=== PATIENT | female | born 1980 | race Caucasian/White ===

== ENCOUNTER 2020-10-15 07:14 | Day surgery (SDC) | payer OTHER ==
[~2020-10-15] VITALS: Ht 175.3 cm; Wt 98.6 kg
[2020-10-15] MEDS ORDERED: SINGULAIR 110 MG/TAB PO (07:30)
[2020-10-15] MEDS ORDERED: PROZAC 20MG20 MG PO (07:30)
[2020-10-15] MEDS ORDERED: LYRICA200 MG PO (07:30)
[2020-10-15] MEDS ORDERED: VTAMINC250TA PO (07:32)
[2020-10-15] MEDS ORDERED: THE MEDICINE SH1 POW PO (07:32)
[2020-10-15] MEDS ORDERED: PROTONIX 40MG T40 MG PO (07:32)
[2020-10-15] MEDS ORDERED: SPIRIVA RE2.5 MCG/Ac IH (07:33)
[2020-10-15] MEDS ORDERED: PROAIR HFA0.09 MG/AC IH (07:33)
[2020-10-15] MEDS ORDERED: VITAMINE200 PO (07:33)
--- NOTE | 2020-10-15 07:45 | NUR ---
Patient reports that she did not start having bowel movements until this morning at 0640. She states that they are liquid, but still dark brown. This information is relayed to Dr. Mancia and she comes to talk with the patient.
[2020-10-15 07:53] VITALS: BP 105/73; PULSE 84; TEMP 98
--- NOTE | 2020-10-15 08:06 | NUR ---
After talking with Dr. Mancia, patient decides it is best to reschedule. She is discharged to home.
== END 2020-10-15 08:11 | disposition home or self-care (01) ==
LOC: SDCO 07:14
DX: K21.9 Gastro-esophageal reflux disease without esophagitis (principal); J45.909 Unspecified asthma, uncomplicated; F17.210 Nicotine dependence, cigarettes, uncomplicated; M19.90 Unspecified osteoarthritis, unspecified site; F32.9 Major depressive disorder, single episode, unspecified; F41.9 Anxiety disorder, unspecified; Z20.828 Contact with and (suspected) exposure to other viral communicable diseases; Z53.8 Procedure and treatment not carried out for other reasons